=== PATIENT | male | born 1965 | race Caucasian/White ===

== ENCOUNTER 2017-10-15 21:48 | Emergency (ER) | payer BC ==
[~2017-10-15] VITALS: Ht 167.6 cm; Wt 93.0 kg
[2017-10-15 22:23] LABS: HEMATOCRIT 43.7 % (38.0-50.0); HEMOGLOBIN 15.3 G/DL (12.5-16.6); MCH 28.9 PG (29.0-34.0); MCV 82.5 FL (86-99); PLATELET COUNT 166 K/uL (156-360); RBC DIS.WIDTH-CV 13.7 % (11.8-14.6); RBC DIS.WIDTH-SD 41.1 % (39-53)
[2017-10-15] MEDS ORDERED: LIPITOR10 MG PO (22:33)
[2017-10-15 22:47] LABS: TROP-I INTERPRETATION NEGATIVE; TROPONIN-I < 0.01 ng/mL (0.0-0.30)
[2017-10-15 23:10] LABS: CHLORIDE 106 MEQ/L (99-109); CREATININE 0.6 MG/DL (0.6-1.3); GFR ESTIMATE (CALCULATED) > 59 mL/min/ (58.99-99999); GLUCOSE 102 mg/dL (70-99); POTASSIUM 3.8 MEQ/L (3.7-5.4); SODIUM 138 MEQ/L (136-147); UREA NITROGEN (BUN) 15 mg/dL (9-23)
[2017-10-16 01:37] LABS: TROP-I INTERPRETATION NEGATIVE; TROPONIN-I < 0.01 ng/mL (0.0-0.30)
[2017-10-16 02:28] VITALS: BP 138/81
== END 2017-10-16 02:29 | disposition home or self-care (01) ==
LOC: EME 21:48
PROVIDERS: Emergency Medicine
DX: R07.89 Other chest pain (principal); E78.5 Hyperlipidemia, unspecified; F41.9 Anxiety disorder, unspecified; Z82.49 Family history of ischemic heart disease and other diseases of the circulatory system
CPT/HCPCS: 71046; 80048; 84484; 85027; 93005; 99281; 99285